=== PATIENT | female | born 1995 | race Hispanic/Latino ===

== ENCOUNTER 2024-08-07 19:00 | Inpatient (IN) | payer OTHER ==
[2024-08-07] MEDS ORDERED: hydrALAZINE 20 MG/ML VIAL SLOW IVP PRN (20:30)
[2024-08-07] MEDS ORDERED: Lidocaine 1% (PF) 30 ML VIAL SC PRN (20:30)
[2024-08-07] MEDS ORDERED: Promethazine HCl 25 MG/ML VIAL IM PRN (20:30)
[2024-08-07] MEDS ORDERED: fentaNYL 50 mcg/mL 1 mL Vial SLOW IVP PRN (20:30)
[2024-08-07] MEDS ORDERED: Zolpidem Tartrate 5 MG TAB PO PRN (20:30)
[2024-08-07] MEDS ORDERED: Carboprost 250 MCG/ML AMP IM PRN (20:30)
[2024-08-07] MEDS ORDERED: HYDROcodone/Acetaminophen 5/325 mg Tablet PO PRN (20:30)
[2024-08-07] MEDS ORDERED: Acetaminophen 500 MG TAB PO PRN (20:30)
[2024-08-07] MEDS ORDERED: Methylergonovine 0.2 MG/ML VIAL IM PRN (20:30)
[2024-08-07] MEDS ORDERED: Ondansetron PF 4 MG/2 ML Vial IVP PRN (20:30)
[2024-08-07] MEDS ORDERED: Oxytocin 30 units/NS 500 ML 500 ML IV SCH (20:30)
[2024-08-07] MEDS ORDERED: Diphenoxylate HCl/Atropine Tablet PO PRN (20:30)
[2024-08-07 20:38] VITALS: BMI 30.7
[2024-08-07] MEDS: Lactated Ringer's 1,000 ML IV SCH (20:50)
[2024-08-07 21:06] LABS: Hemoglobin 11.4 g/dL (12.0-15.5); Mean Corpuscular HGB CONC 33.5 g/dL (32.0-36.0); Mean Corpuscular Hemoglobin 27.6 pg (27.0-33.0); Mean Corpuscular Volume 82.3 fL (81.6-98.3); Mean Platelet Volume 11.5 fL (7.4-10.4); Platelet Count 194 10x3/uL (150-450); RBC Distribution Width 15.4 % (11.5-14.5); Red Blood Cell (RBC) Count 4.13 10x6/uL (3.90-5.03); White Blood Cell (WBC) Count 7.02 10x3/uL (3.5-10.5)
[2024-08-07] MEDS: Misoprostol 100 MCG TAB VAG SCH (21:20)
[2024-08-07 21:35] LABS: HBsAg Index 0.17 S/CO (0-0.99); Hep B Surf Ag - L&D Non-Reactive S/CO (NonReactive)
[2024-08-07 21:36] LABS: Syphilis Antibody Nonreactive (Nonreactive); Syphilis Antibody Index 0.05 S/CO (<1.00 Non-Reactive)
[2024-08-08] MEDS: fentaNYL/Ropivacaine Epidural 100 ML ONE (02:29)
[2024-08-08] MEDS ORDERED: Moisturizing Cream (Eucerin) 113 GM JAR TOP PRN (02:40)
[2024-08-08] MEDS ORDERED: Acetaminophen 325 MG TAB PO PRN (02:40)
[2024-08-08] MEDS ORDERED: Naloxone HCl 0.4 mg/ml Vial IVP PRN ×2 (02:40)
[2024-08-08] MEDS ORDERED: Promethazine HCl 25 MG/ML VIAL IM PRN ×2 (02:40→12:56)
[2024-08-08] MEDS ORDERED: Lactated Ringer's 500 ML IV PRN (02:40)
[2024-08-08] MEDS ORDERED: diphenhydrAMINE 50 MG/ML VIAL IVP PRN (02:40)
[2024-08-08] MEDS ORDERED: Ondansetron PF 4 MG/2 ML Vial IVP PRN ×2 (02:40→12:56)
[2024-08-08] MEDS ORDERED: ePHEDrine Sulfate 50 MG/10 ML VIAL SLOW IVP PRN (02:40)
[2024-08-08] MEDS ORDERED: fentaNYL 2 mcg/Ropivacaine 0.2% Epidural 100 ML CADD EPIDURAL SCH (02:45)
[2024-08-08] MEDS ORDERED: Communication Order-Pharmacy FS SCH (02:45)
[2024-08-08] MEDS: Misoprostol 200 MCG TAB PR PRN (11:32)
[2024-08-08] MEDS: Ibuprofen 800 MG TAB PO PRN (11:59)
[2024-08-08] MEDS: Oxytocin 30 units/NS 500 ML 500 ML IV SCH (11:59)
[2024-08-08] MEDS ORDERED: HYDROcodone/Acetaminophen 5/325 mg Tablet PO PRN (12:56)
[2024-08-08] MEDS ORDERED: Preparation H Ointment 28 GM TUBE PR PRN (12:56)
[2024-08-08] MEDS ORDERED: Lanolin Ointment 7 GM TUBE TOP PRN (12:56)
[2024-08-08] MEDS ORDERED: Bisacodyl 10 MG SUPP PR PRN (12:56)
[2024-08-08] MEDS ORDERED: diphenhydrAMINE 25 MG CAP PO PRN (12:56)
[2024-08-08] MEDS ORDERED: hydrALAZINE 20 MG/ML VIAL SLOW IVP PRN (12:56)
[2024-08-08] MEDS ORDERED: Milk Of Magnesia 30 ML UDCUP PO PRN (12:56)
[2024-08-08] MEDS: Boostrix 0.5 ML (Tdap) VIAL (>/=7 yrs of age) IM ONE (14:11)
[2024-08-08] MEDS: Ibuprofen 800 MG TAB PO SCH (14:11)
[2024-08-08] MEDS: Ferrous Sulfate 325 MG TAB PO SCH (17:56)
[2024-08-08] MEDS: Docusate 100 MG CAP PO SCH (21:03)
[2024-08-09] MEDS: Prenatal Vitamin 1 TAB PO SCH (07:57)
[2024-08-09] MEDS: Benzocaine-Menthol 82.5 ML CAN TOP PRN (07:57)
[2024-08-10] MEDS: HYDROcodone/Acetaminophen 5/325 mg Tablet PO PRN (07:49)
[2024-08-10 08:19] VITALS: BP 111/65; TEMP 97.7
== END 2024-08-10 11:06 | disposition home or self-care (01) | DRG 807 ==
LOC: CSHLD 19:59 → CSHPED 08-08 13:57
PROVIDERS: ADMIT Student in an Organized Health Care Education/Training Program; ATTEND Student in an Organized Health Care Education/Training Program
PROC: 10E0XZZ Delivery of Products of Conception, External Approach (ICD-10-PCS; principal; 2024-08-08)
PROC: 0HQ9XZZ Repair Perineum Skin, External Approach (ICD-10-PCS; 2024-08-08)
DX: O48.0 Post-term pregnancy (principal); Z37.0 Single live birth; O70.0 First degree perineal laceration during delivery; Z3A.40 40 weeks gestation of pregnancy; O69.81X0 Labor and delivery complicated by cord around neck, without compression, not applicable or unspecified
CPT/HCPCS: 51702; 85027; 86780; 86850; 86900; 86901; 87340; J2590; J7120